=== PATIENT | male | born 1990 | race Caucasian/White ===

== ENCOUNTER 2018-02-20 00:03 | Emergency (ER) | payer BC, OTHER ==
[~2018-02-20] VITALS: Ht 182.9 cm; Wt 119.6 kg
[2018-02-20 01:45] VITALS: BP 145/80
== END 2018-02-20 01:46 | disposition home or self-care (01) ==
LOC: EME 00:03
DX: S61.217A Laceration without foreign body of left little finger without damage to nail, initial encounter (principal); W26.0XXA Contact with knife, initial encounter; Y93.G1 Activity, food preparation and clean up
CPT/HCPCS: 99281; 99284